=== PATIENT | female | born 1995 | race Caucasian/White ===

== ENCOUNTER 2017-06-23 13:19 | Emergency (ER) | payer MEDICAID, SELFPAY ==
[2017-06-23 13:21] VITALS: BP 125/59; PULSE 105; RESP 16; TEMP 37.4; O2SAT 97; BMI 21.9
--- NOTE | 2017-06-23 13:29 | RAD_ITS ---
STUDY: X-RAY - RIGHT HAND REASON FOR EXAM: Female, 21 years old. Injury and pain TECHNIQUE: Three view(s) of the hand were obtained. COMPARISON: None. FINDINGS: Bones: There are no acute osseous abnormalities. There is mild irregularity of the fifth metacarpal, likely from an old fracture. Joints: There is abnormal positioning of the fifth finger at the MCP joint. Soft tissues: The soft tissues are unremarkable. Foreign body: None RAD/Hand Min 3 Views IMPRESSION: There is subluxation or dislocation at the fifth MCP joint. No acute fractures are seen. Electronically Signed: Kim Bianchi MD at 14:27 EDT Tel Direct: [phone], Service support ,
--- NOTE | 2017-06-23 15:17 | ED.VISSUMM ---
- ER Visit Summary Date of Service: 06/23/17 Chief Complaint: Right hand injury History of Present Illness: The patient is a 21 F reports that her right fifth finger was fractured for years ago. Last evening she states her finger started aching around the MCP joint and this morning she woke up with her finger more painful and abductor it. She denies any specific injury the last 24 hours. Patient went to urgent care. She states x-rays there showed a dislocation and she was sent to the emergency room. She is right-hand dominant. Physical Examination: Vital signs are gross unremarkable. Patient is in no acute distress. Heart is regular rate and rhythm. Lung sounds are clear. Right upper extremity examination reveals tenderness over the right fifth metacarpal joint with no obvious dislocation. When patient is distracted I do notice her able to pull the fifth finger in. When I slightly flex her MCP joints finger does seem to align appropriately. She has normal sensation and cap refill distally. Test Results: Right hand x-rays were obtained here as I did not have access to the films done at urgent care. Films are read as subluxation or dislocation of the fifth MCP joint. There is no acute fracture. Emergency Department Course and Treatment: Clinically patient has absolutely no dislocation at the fifth MCP joint at this time. Patient was placed in a short ulnar gutter splint. I am concerned the patient may have a ligamentous injury causing her to try to hold her hand in abduction. She is to follow-up with orthopedics. Treatment Plan: [] Disposition: Discharge Impression: Right fifth finger subluxation, concern for ligament injury This note was generated with [employer] dictation software. It may contain incorrect words, spelling, and punctuation that were not noted in review of the chart prior to signing ED Disposition - Plan for ED Patient: Disposition: Home or Assisted Living Chief Complaint: Upper Extremity Injury Instructions: ED Sprain Finger Prescriptions: Naproxen [Naprosyn] 500 mg PO BID PRN #20 tablet Referrals: Jorge Raines MD [STAFF PHYSICIAN] - 1 Week Additional Instructions: As discussed, I am concerned that you damaged a ligament in your 5th finger. Keep splint in place and follow-up with orthopedics as discussed.
--- NOTE | 2017-06-23 15:22 | DCINST.ED_ITS ---
ED Disposition - Plan for ED Patient: Disposition: Home or Assisted Living Chief Complaint: Upper Extremity Injury Instructions: ED Sprain Finger Prescriptions: Naproxen [Naprosyn] 500 mg PO BID PRN #20 tablet Referrals: Jorge Raines MD [STAFF PHYSICIAN] - 1 Week Additional Instructions: As discussed, I am concerned that you damaged a ligament in your 5th finger. Keep splint in place and follow-up with orthopedics as discussed.
== END 2017-06-23 15:28 | disposition home or self-care (01) ==
PROVIDERS: Emergency Provider Emergency Medicine
DX: S63.216A Subluxation of metacarpophalangeal joint of right little finger, initial encounter (principal); X58.XXXA Exposure to other specified factors, initial encounter; Y93.9 Activity, unspecified; Y92.9 Unspecified place or not applicable; Y99.9 Unspecified external cause status; Z72.0 Tobacco use
CPT/HCPCS: 73130; 99282